=== PATIENT | female | born 1990 | race Caucasian/White ===

== ENCOUNTER 2017-04-07 07:06 | Emergency (ER) | payer OTHER ==
[~2017-04-07] VITALS: Wt 106.6 kg
[~2017-04-07 07:06] MED LIST: AMOXICILLIN500 M1 PO; ANAPROX DS550 MG PO; BACTRIM DS 8001 TA1 PO; HYDROCODONE BIT1 T11 PO; KEFLEX500 MG PO; LYSINE500 M1 PO; MOTRIN800 MG PO; MULTI-DAY1 TA1 PO; VISTARIL25 MG PO; VITAMIN B121000 MC2 SL; Zofran4 MG PO
[2017-04-07] MEDS ORDERED: TAMIFLU 75MG CA75 MG PO (07:18)
== END 2017-04-07 07:19 | disposition home or self-care (01) ==
LOC: ED 07:06
DX: J11.1 Influenza due to unidentified influenza virus with other respiratory manifestations (principal); F17.200 Nicotine dependence, unspecified, uncomplicated; Z79.899 Other long term (current) drug therapy